=== PATIENT | female | born 1950 | race Caucasian/White ===

== ENCOUNTER 2019-07-03 04:59 | Emergency (ER) | payer MEDICARE, OTHER ==
[~2019-07-03] VITALS: Ht 157.5 cm; Wt 61.7 kg
[~2019-07-03 04:59] MED LIST: ALBU8HFA IH; AMLO10TA7 PO; ASPI-556 PO; ATOR20TA86 PO; CALC1TAB93 PO; CHL25 PO; CLON0.1T2 PO; FERR-89 PO; HYDR-2924 PO; INSLAN SQ; INSU100C6 SQ; IPRAHFA IH; ISOS60TA4 PO; MECL-160 PO; METO25 PO; MULT-1192 PO; OMEP20 PO; PROP150T28 PO
[2019-07-03] MEDS ORDERED: RISP0.2515 PO (06:05)
[2019-07-03] MEDS ORDERED: CEFX1I IV (06:05)
[2019-07-03] MEDS ORDERED: FOLI1 PO (06:05)
[2019-07-03] MEDS ORDERED: IPRA4AER IH (06:05)
[2019-07-03] MEDS ORDERED: WARF4TAB41 PO ×2 (06:05)
[2019-07-03] MEDS ORDERED: CARV6.2534 PO (06:05)
[2019-07-03] MEDS ORDERED: LIDOCAINE 2% 5 ML JELLY TP ONE (06:15)
[2019-07-03 06:16] LABS: GLUCOSE,POINT OF CARE 203 MG/DL (70-110)
[2019-07-03] MEDS ORDERED: SILVER NITRATE APPLICATOR 1 EA STICK TP ONE (06:45)
[2019-07-03 07:07] LABS: INR 3.2 (0.9-1.1); PROTHROMBIN TIME 32.4 SEC (9.4-11.6)
[2019-07-03 08:30] VITALS: BP 148/53
== END 2019-07-03 09:24 | disposition home or self-care (01) ==
LOC: EMS 04:59
DX: R04.0 Epistaxis (principal); R79.1 Abnormal coagulation profile; E11.9 Type 2 diabetes mellitus without complications; E03.9 Hypothyroidism, unspecified; I25.2 Old myocardial infarction; I50.9 Heart failure, unspecified; J44.9 Chronic obstructive pulmonary disease, unspecified; Z98.890 Other specified postprocedural states; Z79.899 Other long term (current) drug therapy; Z86.73 Personal history of transient ischemic attack (TIA), and cerebral infarction without residual deficits; Z79.4 Long term (current) use of insulin; Z79.01 Long term (current) use of anticoagulants; Z88.8 Allergy status to other drugs, medicaments and biological substances; Z91.018 Allergy to other foods
CPT/HCPCS: 30901